=== PATIENT | female | born 1970 | race Caucasian/White ===

== ENCOUNTER 2016-11-04 01:51 | Emergency (ER) | payer BC, OTHER ==
[~2016-11-04] VITALS: Ht 167.6 cm; Wt 63.5 kg
[2016-11-04 02:09] VITALS: BP 104/66
== END 2016-11-04 03:46 | disposition left against medical advice (07) ==
LOC: ER 01:54
DX: M25.562 Pain in left knee (principal); E03.9 Hypothyroidism, unspecified
CPT/HCPCS: 73564; 99284; A4606; Z7610

== ENCOUNTER 2021-02-17 01:57 | Emergency (ER) | payer BC ==
[~2021-02-17] VITALS: Ht 167.6 cm; Wt 68.9 kg
--- NOTE | 2021-02-17 02:05 | NUR ---
PRESENTED TO THE ER FOR C/O N/V X 2 HRS. PER PT SHE HAD A SHOT OF ALCOHOL EARLIER AND THAT WAS NOT HER FIRST TIME DRINKING ALCOHOL. PT DENIED ABD PAIN. WAS PLACED IN BED 2 ER , ON MONITOR. VSS. WILL CONT TO MONITOR ,
--- NOTE | 2021-02-17 02:07 | NUR ---
DR VALENCIA AT BED SIDE
[2021-02-17] MEDS ORDERED: ONDANSETRON HCL/PF 4 MG/2 ML VIAL ONE (02:10)
[2021-02-17 02:24] LABS: BASOPHILS # (AUTO) 0.1 /CMM (0.0-0.2); EOSINOPHILS % (AUTO) 0.8 % (0.0-6.0); HEMATOCRIT 37 % (33-45); HEMOGLOBIN 12.7 g/dL (11.5-14.8); LYMPHOCYTES # (AUTO) 2.8 /CMM (0.8-4.8); LYMPHOCYTES % (AUTO) 32.5 % (20.0-44.0); MEAN CORPUSCULAR HGB CONC 34 g/dl (31.0-36.0); MEAN CORPUSCULAR VOLUME 92 fL (82-100); MONOCYTES # (AUTO) 0.6 /CMM (0.1-1.30); MONOCYTES % (AUTO) 7.6 % (2.0-12.0); NEUTROPHILS # (AUTO) 4.9 /CMM (1.8-8.9); NEUTROPHILS % (AUTO) 58.1 % (43.0-81.0); PLATELET COUNT (AUTO) 227 /CMM (150-450); RED BLOOD CELL COUNT(AUTO) 4.03 MIL/uL (4.0-5.2); WHITE BLOOD COUNT (AUTO) 8.5 K/uL (4.3-11.0)
[2021-02-17 02:30] LABS: CALCIUM, SERUM 8.5 mg/dL (8.5-10.1); CREATININE 0.9 mg/dL (0.6-1.3); POTASSIUM 3.1 mmol/L (3.5-5.1)
[2021-02-17] MEDS ORDERED: ONDANSETRON HCL/PF 4 MG/2 ML VIAL IVP ONE (02:30)
[2021-02-17] MEDS ORDERED: IV LR 1000 ML 1,000 ML IV ONE ×2 (02:30→03:30)
--- NOTE | 2021-02-17 02:35 | NUR ---
LINSEY DAVIS: [phone]
[2021-02-17 02:39] LABS: ALBUMIN 3.5 g/dL (3.4-5.0); BILIRUBIN,DIRECT 0.1 mg/dL (0.0-0.2); BILIRUBIN,TOTAL 0.3 mg/dL (0.2-1.0)
[2021-02-17] MEDS ORDERED: ONDA4TAB5 PO (03:04)
[2021-02-17] MEDS ORDERED: METOCLOPRAMIDE HCL 10 MG/2 ML VIAL ONE (03:15)
[2021-02-17] MEDS ORDERED: diphenhydrAMINE HCL 50 MG/ML VIAL ONE (03:15)
[2021-02-17] MEDS ORDERED: diphenhydrAMINE HCL 50 MG/ML VIAL IV ONE (03:30)
[2021-02-17] MEDS ORDERED: METOCLOPRAMIDE HCL 10 MG/2 ML VIAL IV ONE (03:30)
--- NOTE | 2021-02-17 04:13 | NUR ---
DR VALENCIA AT BED SIDE
--- NOTE | 2021-02-17 04:28 | NUR ---
PO CHALLENGE DONE. PT TOLERATED THE PO INTAKE WELL. NO S.S OF CHOCKING. NO N/V NOTED .
[2021-02-17 04:38] VITALS: BP 142/68
--- NOTE | 2021-02-17 04:38 | NUR ---
pt is medically stable for d/c. no more N/V noted. IV removed. Catheter intact and site benign. Pressure and 4x4 applied to site. No bleeding noted.Patient discharged to home in stable condition. Rx and Written and verbal after care instructions given. Patient verbalizes understanding of instruction.
== END 2021-02-17 04:39 | disposition home or self-care (01) ==
LOC: ER 02:00
DX: R11.2 Nausea with vomiting, unspecified (principal); E03.9 Hypothyroidism, unspecified
CPT/HCPCS: 36415; 80048; 80076; 83690; 84702; 85025; 85730; 96361; 96374; 96375; 99284; J1200; J2405; J2765; J7030; J7120 ×4